=== PATIENT | male | born 1995 | race Caucasian/White ===

== ENCOUNTER → 2016-08-02 | Outpatient (CLI) | payer MEDICAID | LOC: FIMAGING 10:07 | PROVIDERS: ATTEND Family Medicine Sports Medicine | DX: M41.85 Other forms of scoliosis, thoracolumbar region (principal); M54.2 Cervicalgia ==

== ENCOUNTER 2017-11-22 22:39 | Emergency (ER) | payer MEDICAID, OTHER ==
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
[2017-11-23 00:11] VITALS: BP 131/80
[2017-11-23] MEDS ORDERED: CYCLOBENZAPRINE 10MG PREPACK#3 BTL TAKEHOME ONE ×2 (00:22)
== END 2017-11-23 00:13 | disposition home or self-care (01) ==
DX: S16.1XXA Strain of muscle, fascia and tendon at neck level, initial encounter (principal); V43.52XA Car driver injured in collision with other type car in traffic accident, initial encounter; Y92.9 Unspecified place or not applicable